=== PATIENT | female | born 1980 | race Caucasian/White ===

== ENCOUNTER 2018-03-28 00:13 | Emergency (ER) | payer MEDICAID, OTHER ==
[~2018-03-28] VITALS: Ht 170.2 cm; Wt 111.1 kg
[2018-03-28 00:15] VITALS: BP 173/102
[2018-03-28] MEDS ORDERED: PENICILLIN VK 500MG TABLET PO SCH (00:30)
[2018-03-28] MEDS ORDERED: PENICILLIN VK 500MG TABLET ONE ×2 (00:30→00:33)
[2018-03-28] MEDS ORDERED: ACETAMINOPHEN 500 MG TABLET PO ONE (00:30)
[2018-03-28] MEDS ORDERED: IBUPROFEN 200 MG TABLET PO ONE (00:30)
[2018-03-28] MEDS ORDERED: IBUPROFEN 200 MG TABLET ONE ×2 (00:30→00:33)
[2018-03-28] MEDS ORDERED: ACETAMINOPHEN 500 MG TABLET ONE ×2 (00:31→00:33)
== END 2018-03-28 00:59 | disposition home or self-care (01) ==
LOC: ED 00:41
DX: R51 Headache (principal); K08.89 Other specified disorders of teeth and supporting structures
CPT/HCPCS: 99284

== ENCOUNTER 2018-05-13 16:17 | Emergency (ER) | payer MEDICAID ==
[~2018-05-13] VITALS: Ht 172.7 cm; Wt 111.0 kg
[2018-05-13] MEDS ORDERED: ASPIRIN 81 MG TABLET CHEW PO ONE (17:00)
[2018-05-13 17:58] LABS: BASOPHILS # (AUTO) 0.03 x10^3/uL (0-0.1); BASOPHILS % (AUTO) 0 % (0-1); EOSINOPHILS % (AUTO) 3 % (1-7); LYMPHOCYTES # (AUTO) 3.35 x10^3/uL (1-3.4); LYMPHOCYTES % (AUTO) 34 % (22-44); MD NO; MEAN CORPUSCULAR HEMOGLOBIN 30.8 pg (27.0-34.8); MEAN CORPUSCULAR HGB CONC 34.3 g/dL (32.4-35.8); MEAN CORPUSCULAR VOLUME 89.9 fL (80-100); MEAN PLATELET VOLUME 8.3 fL (7.4-10.4); MONOCYTES # (AUTO) 0.46 x10^3/uL (0.2-0.8); MONOCYTES % (AUTO) 5 % (2-9); NEUTROPHILS % (AUTO) 58 % (42-75); PLATELET COUNT 303 x10^3/uL (130-400); RED BLOOD COUNT 4.62 x10^6/uL (3.82-5.3)
[2018-05-13 18:05] LABS: ALANINE AMINOTRANSFERASE 21 U/L (12-78); ALBUMIN 3.9 g/dL (3.4-5.0); ANION GAP 9 mmol/L (5-15); CALCIUM 9.1 mg/dL (8.5-10.1); CHLORIDE 106 mmol/L (98-107); CREATININE 0.82 mg/dL (0.55-1.02)
[2018-05-13 18:10] LABS: ALKALINE PHOSPHATASE 57 U/L (45-117); BILIRUBIN,TOTAL 0.9 mg/dL (0.2-1.0); TOTAL PROTEIN 7.9 g/dL (6.4-8.2); TROPONIN I < 0.015 ng/mL (0.000-0.045)
[2018-05-13] MEDS ORDERED: ASPIRIN 81 MG TABLET CHEW ONE ×3 (18:13→21:56)
[2018-05-13 18:16] LABS: FREE T4 (FREE THYROXINE) 1.42 ng/dL (0.76-1.46)
[2018-05-13] MEDS ORDERED: MAALOX/HYOSCYAMINE/LIDOCAINE 45 ML BTL ONE (21:54)
[2018-05-13] MEDS ORDERED: MAALOX/HYOSCYAMINE/LIDOCAINE 45 ML BTL PO ONE (22:00)
[2018-05-13] MEDS ORDERED: KETOROLAC 30 MG/1 ML IM ONE (22:30)
[2018-05-13] MEDS ORDERED: LORazepam 1MG TABLET PO ONE (22:30)
[2018-05-13] MEDS ORDERED: KETOROLAC 30 MG/1 ML ONE (22:41)
[2018-05-13] MEDS ORDERED: LORazepam 1MG TABLET ONE (22:42)
[2018-05-13 22:49] VITALS: BP 132/80
== END 2018-05-13 23:46 | disposition home or self-care (01) ==
LOC: ED 20:15
DX: R07.89 Other chest pain (principal); F41.1 Generalized anxiety disorder
CPT/HCPCS: 36415; 71045; 80053; 84439; 84443; 84484; 85025; 93005; 96372; 99285; J1885